=== PATIENT | female | born 1945 | race Caucasian/White ===

== ENCOUNTER → 2022-07-23 14:32 | Outpatient (BNVA) | payer MEDICARE, OTHER, SELFPAY | PROVIDERS: Visit Provider Specialist | DX: M21.942 Unspecified acquired deformity of hand, left hand (principal); M79.641 Pain in right hand; M72.0 Palmar fascial fibromatosis [Dupuytren] | CPT/HCPCS: 73130 ==

== ENCOUNTER 2022-07-23 15:57 | Outpatient (CLI) | payer MEDICARE, OTHER, SELFPAY | END 2022-07-23 15:58 | disposition home or self-care (01) | LOC: SPT 15:58 | PROVIDERS: Visit Provider Specialist | DX: Z46.89 Encounter for fitting and adjustment of other specified devices (principal); M72.0 Palmar fascial fibromatosis [Dupuytren] | CPT/HCPCS: 97760; 99205 ==

== ENCOUNTER → 2022-09-03 14:35 | Outpatient (BNVA) | payer MEDICARE, OTHER, SELFPAY | PROVIDERS: PCP Physician Assistant; Referring Provider Specialist; Visit Provider Specialist | DX: G56.13 Other lesions of median nerve, bilateral upper limbs (principal) | CPT/HCPCS: 95908; 95910 ==

== ENCOUNTER → 2022-10-09 13:08 | Outpatient (BNVA) | payer MEDICARE, OTHER, SELFPAY | PROVIDERS: PCP Physician Assistant; Referring Provider Specialist; Visit Provider Specialist | DX: M62.541 Muscle wasting and atrophy, not elsewhere classified, right hand (principal); M62.542 Muscle wasting and atrophy, not elsewhere classified, left hand | CPT/HCPCS: 95860; 99202 ==

== ENCOUNTER → 2022-10-29 14:07 | Outpatient (BNVA) | payer MEDICARE, OTHER, SELFPAY | PROVIDERS: PCP Physician Assistant; Visit Provider Specialist | DX: M21.941 Unspecified acquired deformity of hand, right hand (principal); M21.942 Unspecified acquired deformity of hand, left hand | CPT/HCPCS: 99214 ==